=== PATIENT | male | born 1995 | race Caucasian/White ===

== ENCOUNTER 2022-04-18 18:23 | Emergency (ER) | payer OTHER ==
[2022-04-18 19:46] VITALS: BP 144/88; PULSE 98; RESP 14; TEMP 98.8
[2022-04-18] MEDS ORDERED: IBUPROFEN 800 MG TAB PO STA (20:22)
[2022-04-18] MEDS ORDERED: ACETAMINOPHEN TAB 325 MG TAB PO STA (20:22)
--- NOTE | 2022-04-18 20:24 | ED ---
Lower Extremity Injury HPI - General Chief Complaint: Extremity Injury, Lower Stated Complaint: lt ankle injury Time Seen by Provider: 04/18/22 20:15 Source: patient, RN notes reviewed, old records reviewed Mode of arrival: ambulatory Limitations: no limitations - History of Present Illness Initial Comments: Well-appearing 27-year-old male presents with left ankle pain after rolling it today. No medication given prior to arrival. Denies any other injury. States he has had multiple fractures in the past including this ankle several years ago. Denies any other medical history. MD Complaint: ankle injury (left) -: hour(s) Severity scale (1-10): 8 Improves With: nothing Worsens With: weight bearing, movement, palpation Context: other (rolled ankle on step) - Related Data Allergies Allergy/AdvReac Type Severity Reaction Status Date / Time No Known Allergies Allergy Verified 04/18/22 19:46 Review of Systems ROS Statement: Those systems with pertinent positive or pertinent negative responses have been documented in the HPI. ROS Other: All systems not noted in ROS Statement are negative. Past Medical History Past Medical History: No Reported History History of Any Multi-Drug Resistant Organisms: None Reported Past Surgical History: No Surgical Hx Reported Smoking Status: Vaper Past Alcohol Use History: Occasional Past Drug Use History: Marijuana General Exam Limitations: no limitations General appearance: alert, in no apparent distress Head exam: Present: atraumatic Eye exam: Present: normal appearance. Absent: scleral icterus, conjunctival injection, periorbital swelling Neck exam: Absent: meningismus Respiratory exam: Absent: respiratory distress, accessory muscle use Cardiovascular Exam: Present: regular rate Left Upper Leg exam: Absent: tenderness Knee exam: Present: full ROM. Absent: tenderness, swelling Lower Leg exam: Present: full ROM. Absent: tenderness, swelling Ankle exam: Present: tenderness, swelling. Absent: abrasion, ecchymosis, deformity, crepitus, dislocation, erythema Foot/Toe exam: Present: normal inspection. Absent: tenderness, swelling, ecchymosis, tenderness at base of 5th metatarsal Neurovascular tendon exam: Present: no vascular compromise. Absent: abnormal cap refill, sensory deficit, extremity cold to touch, pallor, foot drop, peroneal nerve deficit Gait: observed and limited by pain Neurological exam: Present: alert, oriented X3 Psychiatric exam: Present: normal affect, normal mood Skin exam: Present: warm, dry, normal color. Absent: cyanosis, diaphoretic, petechiae, pallor Course Vital Signs 04/18/22 19:43 Temperature 98.8 F Pulse Rate 98 Respiratory 14 Rate Blood Pressure 144/88 O2 Sat by Pulse 98 Oximetry Medical Decision Making - Medical Decision Making Patient was given Tylenol and Motrin for pain X-ray of the left ankle interpreted by me shows no evidence of fracture. Radiologist impression negative for fracture. Neurovascularly intact. Sensation intact. Patient was placed in an ankle stirrup. Directed to rest ice and elevate while at home. Follow up with primary care doctor within the next week. Was pt. sent in by a medical professional or institution? @ -no Did you speak to anyone other than the patient for history? @ -no Did you review nursing and triage notes? @ -yes i agree Were old charts reviewed? @ -no Differential Diagnosis? @ -fracture, dislocation, sprain EKG interpreted by me (3pts min.)? @ -[none] X-rays interpreted by me (1pt min.)? @ -yes as above CT interpreted by me (1pt min.)? @ -[none] U/S interpreted by me (1pt. min.)? @ -[none] What testing was considered but not performed? (CT, X-rays, U/S, labs)? Why? @ no What meds were considered but not given? Why? @ -none Did you discuss the management of the patient with other professionals? @ -no Did you reconcile home meds? @ -no Was smoking cessation discussed for >3mins.? @ -no Was critical care preformed (if so, how long)? @ -no Were there social determinants of health that impacted care today? How? (Homelessness, low income, unemployed, alcoholism, drug addiction, transportation, low edu. Level, literacy, decrease access to med. care, [facility], rehab)? @ -no Was there de-escalation of care discussed even if they declined? (Discuss DNR or withdrawal of care, Hospice)? @ -no What co-morbidities impacted this encounter? (DM, HTN, Smoking, COPD, CAD, Cancer, CVA, Hep., AIDS, mental health diagnosis, sleep apnea, morbid obesity)? @ -none Was patient admitted / discharged? @ -discharged Undiagnosed new problem with uncertain prognosis? @ -[none] Drug Therapy requiring intensive monitoring for toxicity (Heparin, Nitro, Insulin, Cardizem)? @ -no Were any procedures done? @ -no Diagnosis/symptom? @ -ankle spraina Acute, or Chronic, or Acute on Chronic? @ acute Uncomplicated (without systemic symptoms) or Complicated (systemic symptoms)? @ -uncomplicated Side effects of treatment? @ -[none] Exacerbation, Progression, or Severe Exacerbation] @ -[no] Poses a threat to life or bodily function? @ -[no] Disposition Clinical Impression: Ankle sprain Disposition: HOME SELF-CARE Condition: Good Instructions (If sedation given, give patient instructions): Ankle Sprain (ED) Additional Instructions: Rest, ice, elevate. Tylenol and Motrin as needed for pain or discomfort. Follow-up with the primary care doctor next week. Return to the emergency room with any new or concerning symptoms. Is patient prescribed a controlled substance at d/c from ED?: No Referrals: None,Stated [Primary Care Provider] - 1-2 days Time of Disposition: 20:25
--- NOTE | 2022-04-18 20:37 | XR ---
EXAMINATION TYPE: XR ankle complete LT DATE OF EXAM: 04/18/2022 COMPARISON: NONE HISTORY: Ankle pain TECHNIQUE: 3 views FINDINGS: There is soft tissue swelling over the lateral malleolus. Ankle mortise is anatomic. No fra cture seen. Joint spaces are normal. IMPRESSION: Soft tissue swelling. No fracture.
== END 2022-04-18 21:12 | disposition home or self-care (01) ==
LOC: EC 18:23
DX: S93.402A Sprain of unspecified ligament of left ankle, initial encounter (principal); F17.290 Nicotine dependence, other tobacco product, uncomplicated; F12.90 Cannabis use, unspecified, uncomplicated; W01.0XXA Fall on same level from slipping, tripping and stumbling without subsequent striking against object, initial encounter
CPT/HCPCS: 73610; 99283; 29515; L4350